=== PATIENT | female | born 1945 | race Caucasian/White ===

== ENCOUNTER → 2018-02-20 | Outpatient (CLI) | payer OTHER | LOC: CIMAGING 09:17 → EDSTATUS 09:19 → CIMAGING 09:20 | PROVIDERS: ATTEND Nurse Practitioner | DX: M25.751 Osteophyte, right hip (principal); I70.8 Atherosclerosis of other arteries; M51.36 Other intervertebral disc degeneration, lumbar region; M43.27 Fusion of spine, lumbosacral region | CPT/HCPCS: 73521-PO ==

== ENCOUNTER → 2018-12-26 | Outpatient (CLI) | payer OTHER | LOC: EMCIMAGING 09:19 | PROVIDERS: ATTEND Internal Medicine | DX: Z12.31 Encounter for screening mammogram for malignant neoplasm of breast (principal); Z13.820 Encounter for screening for osteoporosis; M81.0 Age-related osteoporosis without current pathological fracture; Z78.0 Asymptomatic menopausal state | CPT/HCPCS: 77067-PN; 77080-PN ==